=== PATIENT | female | born 1990 | race American Indian/Alaskan Native ===

== ENCOUNTER 2022-01-18 21:10 | Emergency (ER) | payer SELFPAY ==
[2022-01-18 22:14] VITALS: BP 139/98
== END 2022-01-18 22:24 | disposition left against medical advice (07) ==
LOC: ED 21:10
DX: S09.90XA Unspecified injury of head, initial encounter (principal); Z53.21 Procedure and treatment not carried out due to patient leaving prior to being seen by health care provider; W19.XXXA Unspecified fall, initial encounter; Y93.89 Activity, other specified; Y92.89 Other specified places as the place of occurrence of the external cause; Y99.8 Other external cause status